=== PATIENT | male | born 1970 | race African-American/Black ===

== ENCOUNTER → 2021-02-12 | Outpatient (CLI) | payer OTHER ==
--- NOTE | 2021-02-12 14:57 | KCIC ---
STUDY: MRI of the left knee without contrast INDICATION: Medial left knee pain. Hyperextension injury. COMPARISON: None. TECHNIQUE: Multiplanar MR imaging of the left knee performed without the use of intravenous or intra- articular contrast. FINDINGS: Menisci: No fluid signal tear defect involving the medial or lateral menisci. Cruciate ligaments: Intact ACL and PCL. Collateral ligaments: Intact. Tendons: Intact. Cartilage: Patellofemoral: Trace superficial chondrosis at the patellar median ridge. Lateral compartment: Chondral fissuring and delamination extending to the subchondral bone plate at t he posterior third of the lateral tibial plateau beneath the meniscus posterior horn the area of invo lvement is approximately 7 x 7 mm. Localized chondrosis at the far posterior nonweightbearing lateral femoral condyle approaching full-thickness, image 12 series 6. Medial compartment: No focal chondral defect. Bones: No fracture or focally aggressive marrow signal abnormality. Subchondral edema/cystic change o n account of chondrosis at the lateral tibial plateau. Increased TT-TG distance of 1.9 cm. Miscellaneous: No significant knee joint effusion. Unremarkable popliteal fossa soft tissues. IMPRESSION: 1. No discrete tear of either meniscus. Intact cruciate and collateral ligaments. 2. Full-thickness chondral fissuring with associated delamination over a region of 7 x 7 mm at the p osterior third of the lateral tibial plateau. Associated subchondral edema and cystic change. There i s also high-grade/near full-thickness chondral loss at the far posterior nonweightbearing lateral fem oral condyle. Electronically signed by: SARAH MORENO MD (02/12/2021 2:55 PM) [id number]
== END ==
LOC: KCIC MRI 12:46
PROVIDERS: ATTEND Family Medicine
DX: M25.562 Pain in left knee (principal)
CPT/HCPCS: 73721